=== PATIENT | female | born 1980 | race American Indian/Alaskan Native ===

== ENCOUNTER 2017-03-03 15:04 | Outpatient (CLI) | payer BC ==
--- NOTE | 2017-03-04 10:10 | Mammography Report ---
BILATERAL DIGITAL SCREENING MAMMOGRAM with CAD: 03/03/17 15:04:00 CLINICAL: Baseline screening. FINDINGS: The breasts are heterogeneously dense, which may obscure small masses.Right retroareolar parenchymal asymmetry on the MLO view requires additional imaging. No architectural distortion or suspicious calcifications. The left breast is negative. IMPRESSION: Right parenchymal asymmetry requiring additional imaging. BI-RADS CATEGORY: 0--Needs Additional Imaging RECOMMENDATION: Recall for a right spot compression MLO view and right breast ultrasound if needed. COMMENT: Patient follow-up letters are generated by our [employer] application.
== END 2017-03-03 15:05 | disposition home or self-care (01) ==
LOC: SPVWC 15:04
PROVIDERS: ATTEND Obstetrics & Gynecology
DX: Z12.31 Encounter for screening mammogram for malignant neoplasm of breast (principal)
CPT/HCPCS: 77067; G0202

== ENCOUNTER 2017-03-28 08:58 | Outpatient (CLI) | payer BC ==
--- NOTE | 2017-03-28 09:58 | Mammography Report ---
RIGHT DIGITAL DIAGNOSTIC MAMMOGRAM and RIGHT BREAST ULTRASOUND: 03/28/17 08:58:00 CLINICAL: Recalled for asymmetry. COMPARISON:03/03/17 screening FINDINGS: ML and MLO spot magnification views demonstrate satisfactory effacement of a retroareolar asymmetry. Ultrasound of the right breast (including all four quadrants and the retroareolar area) was performed and demonstrated normal fibroglandular and fatty structures. No mass, cyst or shadowing. IMPRESSION: No mammographic evidence of malignant seen. Benign asymmetric right fibroglandular densities. BI-RADS CATEGORY: 2 - - Benign RECOMMENDATION: Routine mammographic screening based on ACS guidelines. ACR BI-RADS MAMMOGRAPHIC CODES: 0 = Needs additional imaging evaluation; 1 = Negative; 2 = Benign; 3 = Probably benign; 4 = Suspicious; 5 = Malignant; 6 = Known biopsy-proven malignancy COMMENT: 1. Dense breast tissue, i.e., adenosis, fibrocystic changes, etc., may obscure an underlying neoplasm. 2. Approximately 10% of cancers are not detected with mammography. 3. A negative mammography report should not delay biopsy if a clinically suspicious mass is present. COMMENT: Patient follow-up letters are generated via our [employer] application.
== END 2017-03-28 08:59 | disposition home or self-care (01) ==
LOC: SPVWC 08:58
PROVIDERS: ATTEND Obstetrics & Gynecology
DX: N64.89 Other specified disorders of breast (principal)
CPT/HCPCS: 76641; G0206